=== PATIENT | male | born 1980 | race Caucasian/White ===

== ENCOUNTER 2018-06-22 15:43 | Emergency (ER) | payer BC, MEDICAID ==
[~2018-06-22] VITALS: Ht 172.7 cm; Wt 84.0 kg
[2018-06-22] MEDS ORDERED: LORAZEPAM 1MG TABLET PO ONE (18:00)
[2018-06-22 18:10] VITALS: BP 134/88
== END 2018-06-22 18:11 | disposition home or self-care (01) ==
LOC: ER 15:52
DX: F41.9 Anxiety disorder, unspecified (principal); F31.9 Bipolar disorder, unspecified; F17.200 Nicotine dependence, unspecified, uncomplicated; Z98.890 Other specified postprocedural states
CPT/HCPCS: 99284

== ENCOUNTER 2018-08-02 08:09 | Emergency (ER) | payer MEDICAID ==
[~2018-08-02] VITALS: Ht 172.7 cm; Wt 84.0 kg
[2018-08-02] MEDS ORDERED: LORA2TAB95 PO (08:17)
[2018-08-02] MEDS ORDERED: ZYDS20 PO (08:17)
[2018-08-02] MEDS ORDERED: LORAZEPAM 1MG TABLET PO ONE (10:00)
[2018-08-02 10:43] VITALS: BP 138/75
== END 2018-08-02 10:34 | disposition home or self-care (01) ==
LOC: ER 08:09
DX: F41.9 Anxiety disorder, unspecified (principal); F31.9 Bipolar disorder, unspecified; Z98.890 Other specified postprocedural states
CPT/HCPCS: 99284